=== PATIENT | female | born 1990 | race Caucasian/White ===

== ENCOUNTER 2020-03-16 16:58 | Emergency (ER) | payer SELFPAY ==
[2020-03-16 17:22] VITALS: BP 122/77
--- NOTE | 2020-03-16 17:36 | ER Document Report ---
ED Medical Screen (RME) - General Chief Complaint: Vaginal Bleeding Stated Complaint: VAGINAL BLEEDING Time Seen by Provider: 03/16/20 17:29 Mode of Arrival: Ambulatory Information source: Patient - HPI Patient complains to provider of: , bleeding, cramping Notes: 03/16/20 17:34 Patient with complaints of pain approximately 9 weeks . She is a G4, P3. She states that over the last few days she has had some lower abdominal pain as well as some vaginal bleeding and some cramping. She states that she had a lot of nausea and vomiting until about 2 days ago. She states that the nausea and vomiting have since resolved. She has not had an ultrasound with this yet. She denies any fever. No rash. Exam: Nontoxic, no distress. Lungs clear and equal throughout. Heart sounds normal. Lower abdominal tenderness on limited triage abdominal exam. An initial examination was made on the patient as part of the triage process, and it was determined a more comprehensive evaluation was necessary. Initial orders were placed and patient was transferred to another provider in the ED who assumed care and finished evaluation and plan. - Related Data Allergies/Adverse Reactions: No Known Allergies Allergy (Unverified 03/16/20 17:33) Past Medical History - Social History Chew tobacco use (# tins/day): No Frequency of alcohol use: Rare Drug Abuse: None Physical Exam - Vital signs Vitals: Temp Pulse Resp BP Pulse Ox 98.7 F 82 16 122/77 100 03/16/20 17:20 03/16/20 17:20 03/16/20 17:20 03/16/20 17:20 03/16/20 17:20 Course - Vital Signs Vital signs: Temp Pulse Resp BP Pulse Ox 98.7 F 82 16 122/77 100 03/16/20 17:20 03/16/20 17:20 03/16/20 17:20 03/16/20 17:20 03/16/20 17:20
[2020-03-16 18:26] LABS: ABSOLUTE LYMPHOCYTES (AUTO) 2.1 10^3/uL (0.5-4.7); ABSOLUTE MONOCYTES (AUTO) 0.5 10^3/uL (0.1-1.4); ABSOLUTE NEUT (AUTO) 5.5 10^3/uL (1.7-8.2); BASOPHILS % (AUTO) 0.4 % (0-2); EOSINOPHILS % (AUTO) 0.5 % (0-6); HEMATOCRIT 36.4 % (36.0-47.0); HEMOGLOBIN 12.6 g/dL (12.0-15.5); LYMPHOCYTES % (AUTO) 25.9 % (13-45); MEAN CORPUSCULAR HEMOGLOBIN 29.6 pg (27.0-33.4); MEAN CORPUSCULAR HGB CONC 34.8 g/dL (32.0-36.0); MEAN CORPUSCULAR VOLUME 85 fl (80-97); MONOCYTES % (AUTO) 6.6 % (3-13); PLATELET COUNT 296 10^3/uL (150-450); RED BLOOD COUNT 4.28 10^6/uL (3.72-5.28); RED CELL DISTRIBUTION WIDTH 13.9 % (11.5-14.0); SEGMENTED NEUTROPHILS % (AUTO) 66.6 % (42-78); TOTAL CELLS COUNTED % (AUTO) 100 %; WHITE BLOOD COUNT 8.2 10^3/uL (4.0-10.5)
[2020-03-16 18:31] LABS: APPEARANCE,URINE SLIGHTLY-CLOUDY; BILIRUBIN,URINE NEGATIVE (NEGATIVE); COLOR,URINE YELLOW; GLUCOSE, URINE NEGATIVE (NEGATIVE); KETONES,URINE TRACE mg/dL (NEGATIVE); LEUKOCYTE ESTERASE,URINE MODERATE (NEGATIVE); NITRITE,URINE NEGATIVE (NEGATIVE); PROTEIN,URINE NEGATIVE (NEGATIVE); URINE SPECIFIC GRAVITY 1.019; UROBILINOGEN,URINE NEGATIVE mg/dL (<2.0)
[2020-03-16 18:47] LABS: ALBUMIN 4.1 g/dL (3.5-5.0); ALKALINE PHOSPHATASE 53 U/L (38-126); ANION GAP 8 (5-19); ASPARTATE AMINO TRANSFERASE 23 U/L (14-36); BILIRUBIN,DIRECT 0.2 mg/dL (0.0-0.4); BILIRUBIN,TOTAL 0.5 mg/dL (0.2-1.3); BLOOD UREA NITROGEN 7 mg/dL (7-20); CALCIUM 9.6 mg/dL (8.4-10.2); CARBON DIOXIDE 23 mmol/L (22-30); CHLORIDE 106 mmol/L (98-107); GLUCOSE 85 mg/dL (75-110); POTASSIUM 4.1 mmol/L (3.6-5.0); TOTAL PROTEIN 7.3 g/dL (6.3-8.2)
--- NOTE | 2020-03-16 20:48 | RADIOLOGY REPORT (SQ) ---
EXAM DESCRIPTION: US LESS THAN 14 WEEKS COMPLETED DATE/TME: 03/16/2020 20:13 CLINICAL HISTORY: 29 years, Female, 9 weeks preg, cramping, bleeding COMPARISON: None. TECHNIQUE: Transabdominal jonas scale imaging and Doppler imaging of the gravid pelvis were performed. LIMITATIONS: None. FINDINGS: There is a single, live, intrauterine gestation with a crown-rump length of 2.9 cm, 9 weeks 5 days estimated age and estimated due date of October 14, 2020. There is a heart rate of 182 bpm. There is a 2 x 1.9 x 1.2 cm subchorionic hemorrhage. Cervical length is 3.5 cm and the internal cervical os is closed. There are incidental bilateral ovarian cysts measuring 2.5 cm on the right and 2.3 cm on the left. No evidence of ovarian torsion on Doppler. No free pelvic fluid is seen. IMPRESSION: 1. Single, live, intrauterine gestation at approximately 9 weeks 5 days as per crown rump length. 2. 2 x 1.9 x 1.2 cm subchorionic hemorrhage. There is also tachycardia with a heart rate 182 bpm. copyright 2010 [employer]- All Rights Reserved
--- NOTE | 2020-03-16 22:25 | ER Document Report ---
ED General - General Chief Complaint: Vaginal Bleeding Stated Complaint: VAGINAL BLEEDING Time Seen by Provider: 03/16/20 17:29 Mode of Arrival: Ambulatory Notes: 29-year-old female approximately 9 weeks no prior ultrasound this presents with few days of very scant dark spotting and 1 day of s lightly more red vaginal blood not requiring any sanitary pads with some mild cramping pelvic pain that has now resolved. Patient says she has otherwise been feeling well, previously was having significant nausea vomiting with which is now resolved. Patient endorses having some scant vaginal discharge that has not been bothering her and she is not sure how long it has been present for. Patient denies any fever, trauma, anticoagulation, bleeding diatheses, dizziness, chest pain, shortness of breath, cough/cold symptoms, urinary symptoms, prior episodes, recent illness - Related Data Allergies/Adverse Reactions: No Known Allergies Allergy (Unverified 03/16/20 17:33) Past Medical History - General Information source: Patient Last Menstrual Period: 01/11/20 - Social History Smoking Status: Never Smoker Chew tobacco use (# tins/day): No Frequency of alcohol use: Rare Drug Abuse: None Family History: Reviewed & Not Pertinent Review of Systems - Review of Systems Notes: REVIEW OF SYSTEMS: CONSTITUTIONAL : Denies fever, chills, or sweats. EENT: Denies recent cold/sinus symptoms, denies throat pain CARDIOVASCULAR: Denies chest pain, JAM RESPIRATORY: Denies cough, denies shortness of breath. GASTROINTESTINAL: Denies abdominal pain, nausea/vomiting. GENITOURINARY: Denies difficulty urinating, painful urination. FEMALE GENITOURINARY: + abnormal vaginal bleeding, +vaginal discharge. MUSCULOSKELETAL: Denies neck pain, back pain. SKIN: Denies rash or skin lesions. HEMATOLOGIC : Denies easy bruising or bleeding. LYMPHATIC: Denies swollen, enlarged glands. NEUROLOGICAL: Denies headache, denies change in gait. PSYCHIATRIC: Denies anxiety or stress or depression. Physical Exam - Vital signs Vitals: Temp Pulse Resp BP Pulse Ox 98.7 F 82 16 122/77 100 03/16/20 17:20 03/16/20 17:20 03/16/20 17:20 03/16/20 17:20 03/16/20 17:20 - Notes Notes: PHYSICAL EXAMINATION: GENERAL: Well-appearing, well-nourished and in no acute distress. HEAD: Atraumatic, normocephalic. EYES: Pupils equal round and appropriate constriction, sclera anicteric, conjunctiva are normal. ENT: nares patent, moist mucous membranes. NECK: Normal range of motion, supple without lymphadenopathy LUNGS: Normal respiratory rate and effort, speaking in full sentences HEART: Regular rate, no JVD, no lower extremity edema ABDOMEN: Soft, nontender, no guarding, no masses, no CVAT PELVIC: Very scant thin white discharge in vault, and normal os inspection, no discharge from os, no os erythema, os closed, no CMT, no adnexal tenderness or masses, no blood in vaginal vault. Pelvic exam chaperoned by ITA Stewart. EXTREMITIES: Normal range of motion, no pitting or edema. No cyanosis. NEUROLOGICAL: Awake, alert, conversing appropriately, moves all extremities spontaneously. PSYCH: Normal mood, normal affect. SKIN: Warm, Dry, normal turgor, no rashes or lesions noted. Course - Re-evaluation Re-evalutation: 03/16/20 22:26 Patient with very low volume vaginal bleeding and pelvic cramping in early , subchorionic hemorrhage on ultrasound, no apparent precipitating factors, very scant discharge on pelvic exam likely physiologic sent swabs to lab but low suspicion for treatable pathology at this time so we will wait for labs to result. Ultrasound confirms live IUP. urine contaminated so sent culture to the lab. Patient's labs reassuring, no signs of dehydration, normal vitals, very well-appearing, os closed. Patient appropriate for fclose outpatient follow-up for threatened /subchorionic hemorrhage. Gave extensive return to ED precautions which patient demonstrated understanding of. Patient on vitamins. - Vital Signs Vital signs: Temp Pulse Resp BP Pulse Ox 98.7 F 82 16 122/77 100 03/16/20 17:20 03/16/20 17:20 03/16/20 17:20 03/16/20 17:20 03/16/20 17:20 - Laboratory Results Result Diagrams: 03/16/20 17:45 03/16/20 17:45 Laboratory Results Interpreted: 03/16/20 03/16/20 17:45 17:45 Creatinine 0.50 L Beta HCG, Quant [id number] H Urine Ketones TRACE H Urine Blood SMALL H Ur Leukocyte Esterase MODERATE H Critical Laboratory Results Reviewed: No Critical Results - Radiology Results Critical Radiology Results Reviewed: No Critical Results Discharge - Discharge Clinical Impression: Threatened miscarriage Subchorionic hemorrhage Qualifiers: Fetus number: single or unspecified fetus Trimester: first trimester Qualified Code(s): O41.8X10 - Other specified disorders of amniotic fluid and membranes, first trimester, not applicable or unspecified; O46.8X1 - Other antepartum hemorrhage, first trimester Disposition: HOME, SELF-CARE Additional Instructions: Threatened Miscarriage You have been evaluated for a possible miscarriage. At this time, there is no indication that a miscarriage will occur. Most women with your symptoms will go on to have a perfectly normal baby. However, careful observation will be ne cessary. A miscarriage occurs when the fetus is abnormal. There is no medicine or treatment for it. You should rest in bed until the symptoms have resolved. Do not douche or have sex for at least a week, or until OK'd by the doctor. Call the doctor or return for re-examination if there is an increase in bleeding or cramping, or passage of tissue. Follow-up with your seismograph helper within 1 week. If you have any increase bleeding of 1 pad per hour or more, dizziness, fainting, weakness, chest pain, trouble breathing, fever, or any other worsening or alarming symptoms return to the emergency department immediately. Referrals: MAXIM MAYNARD MD [ACTIVE STAFF] - Follow up in 1 week
[2020-03-16 23:04] LABS: T.VAGINALIS (WET MOUNT) COULD NOT PERFORM; YEAST (WET MOUNT) NO YEAST SEEN
[2020-03-16 23:05] LABS: BACTERIA (WET MOUNT) 4+ BACTERIA SEEN; EPITHELIALS (WET MOUNT) 3+ EPITHELIALS SEEN; WBCS (WET MOUNT) 2+ WBCS SEEN
[2020-03-17 00:21] LABS: CHLAM PCR NOT DETECTED (NOT DETECT)
== END 2020-03-16 23:05 | disposition home or self-care (01) ==
LOC: ER 16:58
DX: O20.0 Threatened abortion (principal); O41.8X10 Other specified disorders of amniotic fluid and membranes, first trimester, not applicable or unspecified; Z3A.09 9 weeks gestation of pregnancy
CPT/HCPCS: 36415; 76801; 80053; 81001; 83690; 84702; 85025; 86900; 86901; 87070; 87086; 87088; 87205; 87210; 87491; 87591; 93976; 99284